=== PATIENT | female | born 1940 | race Hispanic/Latino ===

== ENCOUNTER 2017-11-05 06:47 | Day surgery (SDC) | payer MEDICARE ==
[2017-11-05] MEDS ORDERED: NACL 0.9% 1000 ML 1,000 ML IV SCH (09:00)
[2017-11-05] MEDS ORDERED: WATER FOR IRRIG STERILE ONE (09:07)
[2017-11-05] MEDS ORDERED: WATER FOR IRRIG STERILE IR ONE (09:07)
[2017-11-05] MEDS ORDERED: DIPRIVAN 10 MG/ML IV ONE ×2 (09:29)
--- NOTE | 2017-11-05 10:22 | Short Stay Summary ---
Short Stay Documentation Date of service: 11/05/17 Narrative H&P: The patient presents for surveillance colonoscopy for history of polyps, last study 5 years ago. - History Past Medical History: atrial fib, diabetes, hypertension, hyperlipidemia, other (history of TIA, Sleep apnea, obesity) Past Surgical History: appendectomy, cholecystectomy, hysterectomy, Other ( joint replacement) Social history: no significant social history, no smoking, no alcohol abuse, no prescription drug abuse - Allergies and Medications Current Medications: Allergies nitrofurantoin Allergy (Intermediate, Verified 11/04/17 11:14) Unknown codeine Adverse Reaction (Verified 02/24/14 14:14) Nausea sulfamethoxazole [From Bactrim] Adverse Reaction (Verified 02/24/14 14:13) Hives trimethoprim [From Bactrim] Adverse Reaction (Verified 02/24/14 14:13) Hives Home Medications Medication Instructions Recorded Confirmed Last Taken Type Aspirin 81 mg PO QDAY 02/05/17 02/05/17 Unknown History Atenolol [Tenormin] 50 mg PO BID 02/05/17 02/05/17 11/05/17 06:00 History Duloxetine HCl [Cymbalta] 60 mg PO QDAY 02/05/17 02/05/17 11/05/17 06:00 History Levothyroxine [Synthroid] 75 mcg PO QAM 02/05/17 02/05/17 Unknown History Losartan [Cozaar] 50 mg PO QDAY 02/05/17 02/05/17 11/05/17 06:00 History Pravastatin Sodium [Pravastatin] 40 mg PO QHS 02/05/17 02/05/17 Unknown History Warfarin [Coumadin] 5 mg PO 3XW 02/05/17 02/05/17 10/31/17 History Warfarin [Coumadin] 7.5 mg PO 4XD 02/05/17 02/05/17 10/31/17 History metFORMIN [Glucophage] 1,000 mg PO BID 02/05/17 02/05/17 11/04/17 06:00 History LORazepam [Ativan] 0.5 mg PO Q8H PRN #20 tablet 02/07/17 Unknown Rx Diltiazem Cd [Cardizem CD] 120 mg PO BID #60 capsule 02/08/17 11/05/17 06:00 Rx Active Medications Sodium Chloride (Nacl 0.9% 1000 Ml) 1,000 mls @ 50 mls/hr IV DIRECT DANI Last Admin: 11/05/17 09:22 Dose: 50 mls/hr - Physical exam General appearance: no acute distress, well-nourished, obese Integumentary: no rash, no growths, no abnormal pigmentation HEENT: Atraumatic, PERRLA, EOMI, Mucous membr. moist/pink Lungs: Clear to auscultation, Normal air movement Breasts: deferred Heart: Normal S1, Normal S2, No murmurs Gastrointestinal: normoactive bowel sounds, no tenderness, no distended, no masses, no organomegaly, no hepatomegaly, no splenomegaly, obese Female Genitourinary: deferred Rectal Exam: normal exam-external/orifice, normal rectal tone, no mass Extremities: no ischemia, pulses intact, pulses symmetrical, No edema, normal temperature, normal color Neurological: Normal gait, Normal speech, Strength at 5/5 X4 ext, Normal tone, Sensation intact, Cranial nerves 3-12 NL - Brief post op/procedure progress note Date of procedure: 11/05/17 Findings: see dictated report Estimated blood loss: none Pathology: list (Ascending polyp, rectosigmoid colon polyp) Specimen disposition: to lab Condition: stable - Disposition Condition at discharge: Good Disposition: [id number] TO HOME OR SELFCARE - Discharge Diagnoses (1) History of colon polyps Status: Acute Short Stay Discharge Plan Activity: advance as tolerated, other (no driving for 24 hours, restart Lovenox tonight, restart coumadin after 3 days) Weight Bearing Status: Weight Bear as Tolerated Diet: diabetic Follow up with: DAVI STALLINGS MD [Primary Care Provider] - 7 Days
--- NOTE | 2017-11-05 10:25 | Operative Report ---
Operative Report Operative Report: Date of procedure: 11/05/2017 Preprocedure diagnosis: History of colon polyps, last study 5 years ago. Post procedure diagnosis: Small polyps in the ascending colon and rectosigmoid junction. Mild left colon diverticulosis. Procedure: Colonoscopy to the cecum with hot snare polypectomy 2 Endoscopist: Dr. Box Anesthesia: Monitored anesthesia care per anesthesia department Estimated blood loss: 0 Medications: Monitored anesthesia care. See separate report by anesthesia for details. After careful discussion of the nature and purpose of the procedure as well as details of the technique risks benefits and alternatives the patient gave consent. Please see recent history and physical from the office. The patient was placed in the left lateral decubitus position and medicated per anesthesia. A rectal exam was performed sphincter tone was normal there were no masses palpable. The Deskn 570 scope was passed transanally and advanced under continuous direct vision without difficulty to the cecum. The colon was well prepared. The cecum was normal. The ascending colon revealed a 9 mm pedunculated polyp. The polyp was removed with snare electrocautery without difficulty. No bleeding was encountered. Otherwise the ascending colon was normal and on forward and retroflexed views. The transverse colon was normal. The descending colon and sigmoid colon revealed scattered diverticula. There was a 6 mm pedunculated polyp at the rectosigmoid junction. This was removed with snare cautery and retrieved by suction.. The rectum was normal on forward and retroflexed views. The procedure was well-tolerated overall and the patient was observed in recovery. Conclusions: Small polyps in the ascending colon and at the rectosigmoid junction. Mild left colon diverticulosis. Plan: Await pathology. Repeat colonoscopy in 5 years. Restart Lovenox today and restart Coumadin in 3 days. Signed electronically: Morgan Box M.D.
[2017-11-05 10:45] VITALS: BP 125/58
--- NOTE | 2017-11-05 15:14 | Anesthesia Day of Surgery ---
Anesthesia Day of Surgery - Day of Surgery Patient Examined: Yes Patient H&P Reviewed: Yes Patient is NPO: Yes
--- NOTE | 2017-11-05 15:14 | Anesthesia Consultation ---
Anesthesia Consult and Med Hx Date of service: 11/05/17 - Airway Anesthetic Teeth Evaluation: Good ROM Head & Neck: Adequate Mental/Hyoid Distance: Adequate Mallampati Class: Class II Intubation Access Assessment: Probably Good - Pulmonary Exam CTA: Yes - Cardiac Exam Anesthetic Concerns: afib - Pre-Operative Health Status ASA Pre-Surgery Classification: ASA3 Proposed Anesthetic Plan: MAC - Pulmonary Hx Sleep Apnea: Yes - Cardiovascular System Hx Hypertension: Yes Hx Cardia Arrhythmia: Yes (afib) - Central Nervous System CVA: Yes - Endocrine Hx Non-Insulin Dependent Diabetes: Yes Hx Hypothyroidism: Yes
--- NOTE | 2017-11-05 15:15 | Post Anesthesia Evaluation ---
- Post Anesthesia Evaluation Patient Participated: Yes Airway Patent: Yes Stable Respiratory Function: Yes Nausea/Vomiting: No Temp > 96.8F: Yes Pain Manageable: Yes Adequeate Hydration: Yes Anesthesia Complications: No
== END 2017-11-05 06:48 | disposition home or self-care (01) ==
LOC: GIO 06:47
PROVIDERS: ATTEND Internal Medicine Gastroenterology
DX: Z09 Encounter for follow-up examination after completed treatment for conditions other than malignant neoplasm (principal); E11.9 Type 2 diabetes mellitus without complications; E03.9 Hypothyroidism, unspecified; I10 Essential (primary) hypertension; Z88.8 Allergy status to other drugs, medicaments and biological substances; Z88.2 Allergy status to sulfonamides; Z88.5 Allergy status to narcotic agent; Z79.82 Long term (current) use of aspirin; Z79.899 Other long term (current) drug therapy; Z79.01 Long term (current) use of anticoagulants; G47.30 Sleep apnea, unspecified; Z86.73 Personal history of transient ischemic attack (TIA), and cerebral infarction without residual deficits
CPT/HCPCS: 45385; 88305; J2704; J7030